=== PATIENT | female | born 1985 | race Two or more races ===

== ENCOUNTER 2019-03-01 09:45 | Outpatient (AMBR) | payer MEDICAID, SELFPAY ==
--- NOTE | 2019-03-01 10:04 | PT.OIERPT ---
PT OP Initial Eval Patient Information Pediatric or Adult Patient: Adult PT >13 Visit Reasons: wrist painv Medical Diagnosis: M25.532 L wrist pain Treatment Dx #1: muscle weakness. Start of Care: 03/01/19 Date of Onset: 01/27/19 Initial Assessment Subjective 34 y/o female who had L Wrist area and L Lateral elbow Patient take pain meds and it doesn't relieve her from pain. 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 No problem on ADL's. Pain is constant through out the day. Last night it was throbbing and she wasn't able to sleep. She has difficulty doing her school work and computer work because of pain. Objective PS 10/10 at worst during movement and PS 3/10 relieved by rest. (+) L De Quervain's tenosynovitis (+) L lateral epicondylitis (+) tenderness on the base of the thumb (-) Carpal tunnel syndrome. ROM = WNL MMT Wrist flexors and extensors 5/5 Radial deviation 4/5, ulnar deviation 4/5 Bag Tester strength R 60lbs L 50lbs Assessment Patient will need physical therapy for pain management for her wrist using modalities, stretching and strengthening to facilitate weak muscles. HEP and ergonomic eval of her study station to prevent repetitive pain occurence. Short Term and Phlebotomy Services Technician Goals 1. Increase MMT on radial deviations and ulnar deviations 5/5 x 8 weeks to be able to perform her ADl's without difficulty 2. To decrease pain on her L wrist x 8 weeks to be able to do her schoolwork without difficulty 3. I with HEP and education on proper ergonomics of her study station and proper body mechanics. Treatment Plan Thera ex Manual tx Modalities (hmp, estim, US) Kinesiotaping. HEP Frequency and Duration 2x/wk x 8 weeks Certification Dates: 03/01/2019 to 05/31/2019
== END 2019-03-01 23:59 | disposition home or self-care (01) ==
PROVIDERS: PCP Physician Assistant; Referring Provider Physician Assistant; Visit Provider Nurse Practitioner Family
DX: M25.532 Pain in left wrist (principal); M62.81 Muscle weakness (generalized)
CPT/HCPCS: 97162

== ENCOUNTER 2025-02-27 15:33 | Emergency (ER) | payer MEDICAID, SELFPAY ==
[2025-02-27 15:33] VITALS: BMI 35.7
[2025-02-27 15:50] VITALS: BP 162/101; PULSE 106; RESP 20; TEMP 37; O2SAT 96
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
[2025-02-27 17:33] LABS: Collection Type, Urine Voided
[2025-02-27 17:42] LABS: Bilirubin,Urine Negative (Negative); Blood,Urine Negative (Negative); Clarity,Urine Clear (Clear/Hazy); Color,Urine Lt-Yellow (Lt Yel-Yel); Culture Indicated,Urine Not Indicated; Glucose, Urine Negative (Negative); Ketones,Urine Negative (Negative); Leukocyte Esterase,Urine Positive (Negative); Nitrite,Urine Negative (Negative); PH,Urine 6.0 (5.0-7.0); Protein,Urine Negative (Neg - Trace); RBC,Urine 2 /hpf (0-3); Specific Gravity,Urine 1.027 (1.001-1.035); Squamous Epithelial Cell,Urine 2 /hpf (0-5); Urobilinogen,Urine Negative mg/dL (0.0-1.0); WBC,Urine 3 /hpf (0-5)
[2025-02-27 17:49] LABS: HCG Qualitative,Urine Negative
[2025-02-27 23:29] VITALS: BP 134/95; PULSE 79; RESP 17; TEMP 36.9; O2SAT 97
== END 2025-02-27 23:32 | disposition home or self-care (01) ==
PROVIDERS: Physician Assistant; Emergency Provider Emergency Medicine; PCP Nurse Practitioner Family
DX: M51.27 Other intervertebral disc displacement, lumbosacral region (principal); M50.20 Other cervical disc displacement, unspecified cervical region; M51.26 Other intervertebral disc displacement, lumbar region; S16.1XXA Strain of muscle, fascia and tendon at neck level, initial encounter; S39.012A Strain of muscle, fascia and tendon of lower back, initial encounter; V89.2XXA Person injured in unspecified motor-vehicle accident, traffic, initial encounter; Y92.410 Unspecified street and highway as the place of occurrence of the external cause
CPT/HCPCS: 72125; 72131; 81001; 81025; 99283